=== PATIENT | male | born 1990 | race Two or more races ===

== ENCOUNTER 2020-09-18 09:33 | Emergency (ER) | payer BC ==
[~2020-09-18] VITALS: Ht 190.5 cm; Wt 81.2 kg
[2020-09-18] MEDS ORDERED: AMOX1TAB5 PO (13:09)
[2020-09-18] MEDS ORDERED: CLARINEX-D 121 EACH PO (13:09)
[2020-09-18] MEDS ORDERED: KETO10TA2 PO (13:09)
== END 2020-09-18 13:17 | disposition home or self-care (01) ==
LOC: ER 09:33
DX: J06.9 Acute upper respiratory infection, unspecified (principal); Z03.818 Encounter for observation for suspected exposure to other biological agents ruled out